=== PATIENT | male | born 1995 | race Hispanic/Latino ===

== ENCOUNTER 2017-12-20 02:03 | Emergency (ER) | payer MEDICAID ==
[2017-12-20 02:40] LABS: BASOPHILS % (AUTO) 0.5 % (0.0-5.0); EOSINOPHILS % (AUTO) 1.1 % (0.0-8.0); HEMATOCRIT 47.5 % (42-54); LYMPHOCYTES % (AUTO) 19.9 % (21.0-51.0); MEAN CORPUSCULAR HGB CONC 34.2 g/dL (32.0-36.0); MEAN CORPUSCULAR VOLUME 87.7 fL (80-100); MONOCYTES % (AUTO) 7.4 % (3.0-13.0); NEUTROPHILS % (AUTO) 71.1 % (40.0-77.0); NUCLEATED RED BLOOD CELLS 0.1 % (0.0-0.19); PLATELET COUNT (AUTO) 252 K/uL (130-400); RED BLOOD CELL COUNT(AUTO) 5.42 MIL/uL (4.50-6.20); RED CELL DISTRIBUTION WIDTH 12.8 % (11.0-15.5)
[2017-12-20 02:48] LABS: AMPHET/METH SCREEN,URINE NEGATIVE (NEGATIVE); BARBITURATE SCREEN, URINE NEGATIVE (NEGATIVE); BENZODIAZEPINES SCREEN,URINE POSITIVE (NEGATIVE); CANNABINOID SCREEN,URINE POSITIVE (NEGATIVE); COCAINE SCREEN,URINE NEGATIVE (NEGATIVE); OPIATE SCREEN,URINE NEGATIVE (NEGATIVE); PHENCYCLIDINE SCREEN,URINE NEGATIVE (NEGATIVE)
[2017-12-20 02:54] LABS: CARBON DIOXIDE 30 mmol/L (21-32); CHLORIDE 106 mmol/L (101-111); CREATININE 0.9 mg/dL (0.5-1.5); GLOMERULAR FILTR. RATE CALC 113 mL/min (>60); GLUCOSE,RANDOM 102 mg/dL (70-105); POTASSIUM 3.9 mmol/L (3.5-5.1); SODIUM SERUM 143 mmol/L (136-145); UREA NITROGEN, BLOOD 10 mg/dL (7-18)
[2017-12-20 02:58] LABS: ALANINE AMINOTRANSFERASE 33 U/L (12-78); ALBUMIN 4.1 g/dL (3.5-5.0); ALCOHOL, BLOOD < 3 mg/dL (0-10); ASPARTATE AMINOTRANSFERASE 19 U/L (10-37); BILIRUBIN,TOTAL 0.6 mg/dL (0.2-1.0); TOTAL PROTEIN, SERUM 6.9 g/dL (6.0-8.3)
[2017-12-20 02:59] LABS: ACETAMINOPHEN < 1 mcg/mL (10-29); SALICYLATE < 2.8 mg/dL (2.8-20.0)
== END 2017-12-20 03:40 | disposition home or self-care (01) ==
LOC: EDH 02:03
DX: F13.10 Sedative, hypnotic or anxiolytic abuse, uncomplicated (principal); R07.89 Other chest pain; Z72.0 Tobacco use
CPT/HCPCS: 36415; 80053; 80305; 84484; 85025; 93005; 99285; G0480 ×2; G0481

== ENCOUNTER 2019-06-26 18:17 | Emergency (ER) | payer MEDICAID ==
[2019-06-26] MEDS ORDERED: ACETAMINOPHEN EXTRA STRENGTH 500 MG TABLET ONE (19:22)
== END 2019-06-26 19:40 | disposition home or self-care (01) ==
LOC: EDH 18:17
DX: S43.51XA Sprain of right acromioclavicular joint, initial encounter (principal); Z72.0 Tobacco use; W18.39XA Other fall on same level, initial encounter; Y93.89 Activity, other specified; Y92.89 Other specified places as the place of occurrence of the external cause; Y99.8 Other external cause status
CPT/HCPCS: 73030

== ENCOUNTER 2022-06-18 05:05 | Emergency (ER) | payer MEDICAID ==
[~2022-06-18] VITALS: Ht 172.7 cm; Wt 72.6 kg
[2022-06-18] MEDS ORDERED: AMP/SULBAC 3GM+NS 100ML 100 ML IV ONE (05:53)
[2022-06-18] MEDS ORDERED: UNASYN 3GM VIAL IV ONE (06:00)
[2022-06-18] MEDS ORDERED: KETOROLAC 30MG VIAL (30MG/ML) IVP ONE (06:00)
[2022-06-18] MEDS ORDERED: HYDROCODONE/ACETAMINOPHEN 5/325 MG TAB PO ONE (06:00)
[2022-06-18 06:12] LABS: BASOPHILS % (AUTO) 0.4 % (0.0-5.0); EOSINOPHILS % (AUTO) 2.2 % (0.0-8.0); HEMATOCRIT 42.3 % (42-54); LYMPHOCYTES % (AUTO) 16.6 % (21.0-51.0); MEAN CORPUSCULAR HEMOGLOBIN 29.2 pg (27.0-33.0); MEAN CORPUSCULAR HGB CONC 34.3 g/dL (32.0-36.0); MEAN CORPUSCULAR VOLUME 85.3 fL (79-99); MONOCYTES % (AUTO) 9.2 % (3.0-13.0); NEUTROPHILS % (AUTO) 71.2 % (40.0-77.0); PLATELET COUNT (AUTO) 379 K/uL (130-400); RED BLOOD CELL COUNT(AUTO) 4.96 MIL/uL (4.50-6.20); RED CELL DISTRIBUTION WIDTH 12.4 % (11.0-15.5)
[2022-06-18 06:49] LABS: ALBUMIN 3.5 g/dL (3.5-5.0); CRP QUANTITATIVE 23.6 mg/L (0.00-9.0); TOTAL PROTEIN, SERUM 7.5 g/dL (6.0-8.3)
[2022-06-18 06:51] LABS: POTASSIUM 2.9 mmol/L (3.5-5.1)
[2022-06-18] MEDS ORDERED: POTASSIUM BICARB/CIT AC 25 MEQ TABLET.EFF PO ONE ×2 (07:00→09:00)
[2022-06-18] MEDS ORDERED: LIDOCAINE HCL-MPF 1% 2ML VIAL IV SCH (09:00)
[2022-06-18] MEDS ORDERED: POTASSIUM CHLORIDE 20 MEQ/100 ML BAG IV SCH (09:00)
[2022-06-18 11:32] VITALS: BP 98/74
[2022-06-18] MEDS ORDERED: IBUP-2070 PO (11:32)
[2022-06-18] MEDS ORDERED: CLIN-141 PO (11:32)
== END 2022-06-18 11:53 | disposition home or self-care (01) ==
LOC: EDH 05:05
DX: L03.211 Cellulitis of face (principal); K04.7 Periapical abscess without sinus; E87.6 Hypokalemia
CPT/HCPCS: 99284; 96365; 96366; 96375; 80053; 85025; 86140; 36415; J3480; J1885; J0295 ×2; 96374

== ENCOUNTER 2023-06-09 05:26 | Emergency (ER) | payer MEDICAID ==
[~2023-06-09 05:26] MED LIST: CLIN-141 PO; IBUP-2070 PO
[2023-06-09] MEDS ORDERED: OMEP40CA21 PO (05:45)
[2023-06-09] MEDS ORDERED: ONDA-104 PO (05:45)
[2023-06-09 05:51] VITALS: BP 137/78; PULSE 78; RESP 18; O2SAT 98
== END 2023-06-09 06:00 | disposition home or self-care (01) ==
LOC: EDH 05:26
DX: K29.70 Gastritis, unspecified, without bleeding (principal); F17.200 Nicotine dependence, unspecified, uncomplicated; F31.9 Bipolar disorder, unspecified; Z79.899 Other long term (current) drug therapy